=== PATIENT | female | born 1955 ===

== ENCOUNTER 2019-05-15 05:59 | Day surgery (SDC) | payer OTHER ==
[~2019-05-15 05:59] MED LIST: AVAPRO150 MG PO; HYDROCHLOROTH12.5 MG PO; SYNTHROID50 MCG PO; TOPROL XL25 MG PO; ZOCOR20 MG PO
[2019-05-15] MEDS ORDERED: DOXYCYCLINE HY100 M3 PO (12:00)
[2019-05-15] MEDS ORDERED: Tylenol #3 PO (12:00)
== END 2019-05-15 18:25 | disposition home or self-care (01) ==
LOC: CIR.AMB 05:59
DX: N84.0 Polyp of corpus uteri (principal); D25.0 Submucous leiomyoma of uterus

== ENCOUNTER 2022-05-25 06:00 | Day surgery (SDC) | payer OTHER ==
[~2022-05-25] VITALS: Ht 157.5 cm; Wt 71.7 kg
[~2022-05-25 06:00] MED LIST changes: +DOXYCYCLINE HY100 M3 PO; +Tylenol #3 PO
[2022-05-25] MEDS ORDERED: MORGIDOX100 MG PO (09:23)
[2022-05-25] MEDS ORDERED: NAPR500T14 PO (09:23)
== END 2022-05-25 15:45 | disposition home or self-care (01) ==
LOC: CIR.AMB 06:00
PROVIDERS: ATTEND Obstetrics & Gynecology
DX: N84.0 Polyp of corpus uteri (principal); N72 Inflammatory disease of cervix uteri; Z20.822 Contact with and (suspected) exposure to COVID-19; I10 Essential (primary) hypertension; E03.9 Hypothyroidism, unspecified; G43.909 Migraine, unspecified, not intractable, without status migrainosus